=== PATIENT | female | born 1980 | race Caucasian/White ===

== ENCOUNTER 2016-06-27 19:17 | Emergency (ER) | payer SELFPAY ==
[~2016-06-27] VITALS: Ht 167.6 cm; Wt 90.0 kg
[~2016-06-27 19:17] MED LIST: LISI-515 PO; PERC5TAB12 PO; PROT40TA PO; ZOFR4TAB3 SL
[2016-06-27 19:19] VITALS: BP 193/92; PULSE 82; RESP 16; TEMP 98.1; O2SAT 100
[2016-10-18] MEDS ORDERED: NORE1CAP PO (09:14)
[2016-10-18] MEDS ORDERED: NORE1TAB60 PO (09:14)
== END 2016-06-27 20:02 | disposition left against medical advice (07) ==
LOC: NED 19:17
DX: R10.11 Right upper quadrant pain (principal)
CPT/HCPCS: 99281

== ENCOUNTER → 2016-07-03 | Day surgery (SDC) | payer BC ==
[~2016-07-03] MED LIST changes: +ACETAMINOPHEN/HYDROcodone 325 MG/5 MG TAB ONE; +BUPIVACAINE/EPINEPHRINE 0.5% 50 ML VIAL ONE; +IBUP-232 PO; +KETOROLAC TROMETHAMINE 30 MG/ML (IVP) VIAL IV PUSH ONE; +LACTATED RINGER'S 1000 ML INJ 1,000 ML ONE; +MACR100C2 PO; +MIDAZOLAM HCL 2 MG/2 ML VIAL ONE; +MORPHINE SULFATE 4 MG/ML INJ ONE; +NORE1CAP PO; +NORE1TAB60 PO; +ONDANSETRON HCL 4 MG/2 ML VIAL IV PUSH ONE; +PROPOFOL 200 MG/20 ML AMP IV ONE; +ceFAZolin 2 GM PREMIX 50 ML ONE; +metroNIDAZOLE 500 MG INJ 100 ML IV ONE
--- NOTE | 2016-07-03 10:31 | TN ---
cc: REESE CALIXTO M.D. DATE OF SURGERY: 07/03/2016 PREOPERATIVE DIAGNOSIS 1. Growing right gluteal mass. 2. Raised left neck skin lesion. 3. Right upper quadrant pain with cholelithiasis, cholecystitis. POSTOPERATIVE DIAGNOSIS 1. Growing right gluteal mass. 2. Raised left neck skin lesion. 3. Right upper quadrant pain with cholelithiasis, cholecystitis. PROCEDURE 1. Excision of right gluteal mass, 8.5 x 6 cm, double-layer closure, somewhat of a pedunculated mass. 2. Laparoscopic cholecystectomy. 3. Excision of a 5 mm raised, dark, irregular skin lesion. ANESTHESIA General. SURGEON Dr. Calixto [facility] [employer] SHAQUILLE Medrano The NURSING HOME SOCIAL WORKER was present from beginning to the end of the case assisting in all portions of the procedure. It was necessary to have this individual in the room to assist in the above surgical procedure. The surgical procedure was assisted by the NURSING HOME SOCIAL WORKER. The NURSING HOME SOCIAL WORKER presence was necessary throughout the case for appropriate retraction, dissection, visualization, and resection of the important anatomical structures during the surgical procedure. The NURSING HOME SOCIAL WORKER was assisting throughout the entirety of the operation. The skill set of the NURSING HOME SOCIAL WORKER is medically and surgically necessary to safely complete the surgical procedure. During the surgical case the operating room neurosurgical physician assistant was working instrument table and passing instruments to the attending surgeon and NURSING HOME SOCIAL WORKER The NURSING HOME SOCIAL WORKER was directly assisting the operating surgeon and involved in the technical aspects of the surgical case. INDICATIONS This is a pleasant lady who had severe right upper quadrant pain and was found to have cholelithiasis, cholecystitis. She also had a right gluteal mass that was quite bothersome, somewhat pedunculated measuring 8.5 x 6 cm, and a left neck skin lesion that was growing and concerning to her. DETAILS OF PROCEDURE The patient was taken to the operating room and placed in the supine position. After anesthesia, she placed in the prone position. The right gluteal mass is prepped with Betadine. We make an elliptical incision measuring 10 x 7 cm to completely enucleate and remove this pedunculated mass with its stalk and underlying tissue to normal adipose tissue. It was passed off the field. We then closed in two layers, reapproximating the defect with 3-0 Vicryl in the deep layer and interrupted 3-0 nylon in the skin. We then place her in the prone position, re-prep and drape. Another timeout was done. We anesthetize just under the umbilicus. A Veress needle is inserted. A saline load test is performed. The abdomen is insufflated to 15 mmHg. A camera is introduced after a 10 mm port is placed. Two other working ports are placed, 5 mm below the xyphoid, 5 mm in between the two previously placed ports. The gallbladder can be seen and has chronic inflammation and adhesions which are taken down with blunt dissection and electrocautery device. The gallbladder is then grasped superior and laterally. We identified the cystic duct. There is a very small, non-existent cystic artery which is cauterized. The gallbladder is then teased off the gallbladder bed after doubly ligating the cystic duct with hemoclips and transecting. The gallbladder is then placed in an EndoCatch and pulled out through the umbilical incision and passed off the field. We check our dissection site. There is excellent hemostasis. No other gross abnormality is seen. The trocars are removed. The CO2 is removed. The fascial defect in the umbilicus is closed in a horizontal fashion using 0 Vicryl in interrupted fashion to reapproximate the defect. The skin is then closed with 4-0 Vicryl at all three sites. We then direct our attention to the left neck and the area is prepped with Betadine. We simply do a shave biopsy to remove the lesion completely and cauterize the base for hemostasis and place a Band-Aid. The patient tolerated the procedure well. She was then extubated and returned to Recovery with no immediate post-op complication. MD CECILIO Aguiar/RAOUL /10:04 AM /10:18 AM SARA
== END | disposition home or self-care (01) ==
LOC: ESDC 06:42
PROVIDERS: ATTEND Surgery
DX: K80.10 Calculus of gallbladder with chronic cholecystitis without obstruction (principal); R22.2 Localized swelling, mass and lump, trunk; L98.9 Disorder of the skin and subcutaneous tissue, unspecified
CPT/HCPCS: 00300; 00400; 00790; 11308; 27043; 47562; 88304; 88305; J0690; J1885; J2250; J2270; J2405; J3010; J7120

== ENCOUNTER 2016-07-04 07:28 | Emergency (ER) | payer BC ==
[~2016-07-04] VITALS: Ht 167.6 cm; Wt 90.0 kg
[~2016-07-04 07:28] MED LIST changes: -ACETAMINOPHEN/HYDROcodone 325 MG/5 MG TAB ONE; -BUPIVACAINE/EPINEPHRINE 0.5% 50 ML VIAL ONE; -IBUP-232 PO; -KETOROLAC TROMETHAMINE 30 MG/ML (IVP) VIAL IV PUSH ONE; -LACTATED RINGER'S 1000 ML INJ 1,000 ML ONE; -MACR100C2 PO; -MIDAZOLAM HCL 2 MG/2 ML VIAL ONE; -MORPHINE SULFATE 4 MG/ML INJ ONE; -NORE1CAP PO; -NORE1TAB60 PO; -ONDANSETRON HCL 4 MG/2 ML VIAL IV PUSH ONE; -PROPOFOL 200 MG/20 ML AMP IV ONE; -ceFAZolin 2 GM PREMIX 50 ML ONE; -metroNIDAZOLE 500 MG INJ 100 ML IV ONE
[2016-07-04 07:36] VITALS: BP 149/101; PULSE 109; RESP 20; TEMP 98; O2SAT 98
[2016-07-04] MEDS ORDERED: SODIUM CHLOR 0.9% 1000 ML INJ 1,000 ML IV ONE (08:00)
[2016-07-04] MEDS ORDERED: SODIUM CHLORIDE 0.9% FLUSH 5 ML FLUSH IVF PRN (08:00)
[2016-07-04] MEDS ORDERED: MORPHINE SULFATE 4 MG/ML INJ IV PUSH ONE (08:00)
--- NOTE | 2016-07-04 08:03 | PD ---
HPI Chief Complaint: Pain: Acute or Chronic Time Seen by Provider: 07:48 Travel History International Travel<30 days: No Contact w/Intl Traveler<30days: No Traveled to known affect area: No History of Present Illness HPI Patient is a 36-year-old female who presents to emergency room with complaints of right upper quadrant abdominal pain radiating to her chest. Patient reports that she had a laparoscopic cholecystectomy yesterday by Dr. Miguel Angel Calixto. Patient reports that she was discharged after her cholecystectomy, reports that after her surgery, she had increased pain to her upper quadrant which radiates her chest. Patient reports that since yesterday, she had been having sharp stabbing pains with increased shortness of breath with her symptoms. Patient reports "I just can't take a deep breath." Patient reports that she was prescribed pain medication after surgery, reports that this has not been helping with her symptoms. Patient with no fevers or chills. Patient reports that she is having chest pain, reports that chest feels a sharp, stabbing pain to her chest. Reports that pain goes from her right upper quadrant and radiates to her chest - reports that she has never had these symptoms in the past. Patient with history of hypertension, denies history of coronary disease or CT in the past. PFSH Past Medical History Diminished Hearing: No Gastrointestinal Disorders: Yes (gallstones) Genitourinary: Yes (UTERINE FIBROIDS) Hypertension: Yes Reproductive: Yes (HX OF FIBROIDS) Immunizations Current: No ?: Not Menopausal: No : 1 Para: 1 Miscarriage: 0 : 0 Social History Alcohol Use: No Tobacco Use: No Substance Use: No Allergies-Medications (Allergen,Severity, Reaction): Coded Allergies: No Known Allergies (Unverified , 06/27/16) Reported Meds & Prescriptions Reported Meds & Active Scripts Active Ibuprofen 600 Mg Tab 600 Mg PO Q6H PRN Zofran Odt (Ondansetron Odt) 4 Mg Tab 4 Mg SL Q6HR PRN 7 Days Protonix (Pantoprazole Sodium) 40 Mg Tab 40 Mg PO DAILY Percocet (Oxycodone-Acetaminophen) 5-325 mg Tab 1 Tab PO Q4H PRN Reported Lisinopril 20 Mg Tab 20 Mg PO DAILY Review of Systems General / Constitutional: No: Fever Eyes: No: Visual changes HENT: No: Headaches Cardiovascular: Positive: Chest Pain or Discomfort, Palpitations Respiratory: Positive: Shortness of Breath Gastrointestinal: No: Abdominal Pain Genitourinary: No: Dysuria Musculoskeletal: No: Pain Skin: No Rash Neurologic: No: Weakness Psychiatric: No: Depression Endocrine: No: Polydipsia Hematologic/Lymphatic: No: Easy Bruising Physical Exam Narrative GENERAL: NAD SKIN: Warm and dry. HEAD: Atraumatic. Normocephalic. EYES: Pupils equal and round. No scleral icterus. No injection or drainage. ENT: No nasal bleeding or discharge. Mucous membranes pink and moist. NECK: Trachea midline. No JVD. CARDIOVASCULAR: Regular rate and rhythm. No murmur appreciated. RESPIRATORY: No accessory muscle use. Clear to auscultation. Breath sounds equal bilaterally. GASTROINTESTINAL: Abdomen soft, patient with right upper quadrant tenderness - guarding on exam, incisions sites are clean, dry, intact with no signs of infection or drainage or erythema MUSCULOSKELETAL: No obvious deformities. No clubbing. No cyanosis. No edema. NEUROLOGICAL: Awake and alert. No obvious cranial nerve deficits. Motor grossly within normal limits. Normal speech. PSYCHIATRIC: Patient anxious on exam Data Data Last Documented VS Vital Signs Date Time Temp Pulse Resp B/P Pulse Ox O2 Delivery O2 Flow Rate FiO2 07/04/16 08:41 18 100 Nasal Cannula 2 07/04/16 08:41 88 07/04/16 08:41 98.3 141/76 Orders Electrocardiogram (07/04/16 07:55) Complete Blood Count With Diff (07/04/16 07:55) Comprehensive Metabolic Panel (07/04/16 07:55) Prothrombin Time / Inr (Pt) (07/04/16 07:55) Act Partial Throm Time (Ptt) (07/04/16 07:55) Lipase (07/04/16 07:55) Chest, Single Ap (07/04/16 07:55) Ecg Monitoring (07/04/16 07:55) Iv Access Insert/Monitor (07/04/16 07:55) Oximetry (07/04/16 07:55) Sodium Chloride 0.9% Flush (Ns Flush) (07/04/16 08:00) Ct Pulmonary Angiogram (07/04/16 07:55) Urinalysis - C+S If Indicated (07/04/16 07:55) Ed Urine Pregnancytest Poc (07/04/16 07:55) Morphine Inj (Morphine Inj) (07/04/16 08:00) Sodium Chlor 0.9% 1000 Ml Inj (Ns 1000 M (07/04/16 08:00) Iohexol 350 Inj (Omnipaque 350 Inj) (07/04/16 09:32) Urine Culture (07/04/16 09:50) Nitrofurantoin Monohyd Macrocr (Macrobid (07/04/16 10:30) Ketorolac Inj (Toradol Inj) (07/04/16 10:30) Labs Laboratory Tests Test 07/04/16 07/04/16 08:33 09:50 White Blood Count 8.5 TH/MM3 Red Blood Count 4.56 MIL/MM3 Hemoglobin 12.0 GM/DL Hematocrit 36.1 % Mean Corpuscular Volume 79.2 FL Mean Corpuscular Hemoglobin 26.3 PG Mean Corpuscular Hemoglobin 33.2 % Concent Red Cell Distribution Width 14.3 % Platelet Count 158 TH/MM3 Mean Platelet Volume 11.2 FL Neutrophils (%) (Auto) 80.0 % Lymphocytes (%) (Auto) 11.9 % Monocytes (%) (Auto) 7.4 % Eosinophils (%) (Auto) 0.4 % Basophils (%) (Auto) 0.3 % Neutrophils # (Auto) 6.8 TH/MM3 Lymphocytes # (Auto) 1.0 TH/MM3 Monocytes # (Auto) 0.6 TH/MM3 Eosinophils # (Auto) 0.0 TH/MM3 Basophils # (Auto) 0.0 TH/MM3 CBC Comment DIFF FINAL Differential Comment Prothrombin Time 10.3 SEC Prothromb Time International 0.9 RATIO Ratio Activated Partial 25.1 SEC Thromboplast Time Sodium Level 138 MEQ/L Potassium Level 4.2 MEQ/L Chloride Level 105 MEQ/L Carbon Dioxide Level 23.9 MEQ/L Anion Gap 9 MEQ/L Blood Urea Nitrogen 10 MG/DL Creatinine 0.79 MG/DL Estimat Glomerular Filtration 83 ML/MIN Rate Random Glucose 88 MG/DL Calcium Level 9.0 MG/DL Total Bilirubin 0.6 MG/DL Aspartate Amino Transf 54 U/L (AST/SGOT) Alanine Aminotransferase 29 U/L (ALT/SGPT) Alkaline Phosphatase 72 U/L Total Protein 7.6 GM/DL Albumin 3.7 GM/DL Lipase 137 U/L Urine Color YELLOW Urine Turbidity HAZY Urine pH 6.0 Urine Specific [place] 1.021 Urine Protein NEG mg/dL Urine Glucose (UA) NEG mg/dL Urine Ketones NEG mg/dL Urine Occult Blood NEG Urine Nitrite NEG Urine Bilirubin NEG Urine Urobilinogen LESS THAN 2.0 MG/DL Urine Leukocyte Esterase LARGE Urine WBC 19 /hpf Urine Squamous Epithelial 7 /hpf Cells Urine Mucus FEW /lpf Urine Yeast (Budding) OCC Microscopic Urinalysis Comment CULTURE INDICATED MDM Medical Decision Making Medical Screen Exam Complete: Yes Emergency Medical Condition: Yes Interpretation(s) EKG at 0807: Normal sinus rhythm at 81 beats a minute, QT/QTC: 355/392, no acute ST or T-wave changes Vital Signs Date Time Temp Pulse Resp B/P Pulse Ox O2 Delivery O2 Flow Rate FiO2 07/04/16 07:36 98.0 109 20 149/101 98 Differential Diagnosis post op pain, anxiety, PE, pneumothorax, arrhythmia, electrolyte abnormality, pneumoperitoneum Narrative Course Patient is a 36-year-old female who presents to emergency room with complaints of right upper quadrant pain radiating to her chest - patient reports that symptoms began yesterday after she had a laparoscopic cholecystectomy by Dr. Calixto. Patient currently with pain from right upper quadrant radiating up to her chest. Patient currently complaining of chest pain and shortness of breath. Patient reports her chest pain is sharp and stabbing in nature and stems from her right upper quadrant. On evaluation, patient is very anxious, patient does have right upper quadrant pain and guarding. Patient with most likely postop pain, cannot exclude PE with her shortness of breath and pleuritic chest pain. Patient was placed on court monitor as well as continuous pulse oximeter upon arrival to emergency room. EKG, x-ray chest, CBC, BMP and CT angiogram the chest ordered for further evaluation of symptoms. In the interim, will hydrate patient, and provide patient pain relief with morphine. Patient reevaluated, patient reports that she is feeling much better, reviewed all labs and all studies as well as all his and all findings with patient in detail. CT abdomen and pelvis shows evidence of free intraperitoneal air within the right upper abdomen, this is most likely from abdominal surgery secondary to her procedure yesterday. Patient with no evidence of pulmonary embolism. EKG with no acute ST-T wave changes. I do not believe that patient has cardiac chest pain and patient with most likely postop pain. Patient will follow up with her surgeon as outpatient and return to ER as needed. Signs and symptoms of when to return to the emergency room reviewed with patient. Patient thankful for care. Diagnosis Primary Impression: Post-operative pain Additional Impression: UTI (urinary tract infection) Qualified Code: N30.00 - Acute cystitis without hematuria Patient Instructions: Narcotic given in the ED, General Instructions Departure Forms: Tests/Procedures, Work Release Enter return to work date: Jul 06, 2016 Additional Instructions: Please return to ER as needed Please follow-up with your surgeon as scheduled Please follow-up with your primary care doctor in 1-2 days Med/Other Pt SpecificInfo: Prescription(s) given Scripts Nitrofurantoin Monohydrate Macrocrystals (Macrobid)100 Mg [id number] Mg PO BID 10 Days Ref 0 Prov:Hailey Turner DO 07/04/16 Ibuprofen 600 Mg [id number] Mg PO Q6H PRN (Pain/Inflammation) #40 TAB Ref 0 Prov:Hailey Turner DO 07/04/16 Disposition: 01 DISCHARGE HOME Condition: Fair Hailey Turner DO Jul 04, 2016 08:03
[2016-07-04 08:41] VITALS: BP 141/76; PULSE 85; RESP 18; TEMP 98.3; O2SAT 100; O2SAT 98
[2016-07-04 08:45] LABS: AUTOMATED NEUTROPHIL # 6.8 TH/MM3 (1.8-7.7); BASOPHIL % 0.3 % (0.0-2.0); EOSINOPHIL % 0.4 % (0.0-4.0); HEMATOCRIT 36.1 % (35.0-46.0); HEMO FLAGS DIFF FINAL; LYMPH % 11.9 % (9.0-44.0); MEAN CELL VOLUME 79.2 FL (80.0-100.0); MEAN CORPUSCULAR HEMOGLOBIN 26.3 PG (27.0-34.0); MEAN CORPUSCULAR HGB CONC 33.2 % (32.0-36.0); MONO % 7.4 % (0.0-8.0); PLATELET COUNT 158 TH/MM3 (150-450); RED BLOOD COUNT 4.56 MIL/MM3 (4.00-5.30); RED CELL DISTRIBUTION WIDTH 14.3 % (11.6-17.2); WHITE BLOOD COUNT 8.5 TH/MM3 (4.0-11.0)
--- NOTE | 2016-07-04 08:49 | RADRPT ---
EXAM DATE/TIME: 07/04/2016 08:08 [facility] COMPARISON: CT PULMONARY ANGIOGRAM, April 25, 2013, 0:29. US ABDOMEN - GALLBLADDER, June 22, 2016, 20:12. INDICATIONS : Severe abdomen pains radiating into chest. MEDICAL HISTORY : Cholelithiasis. SURGICAL HISTORY : Cholecystectomy. ENCOUNTER: Initial ACUITY: 1 day PAIN SCORE: 10/10 LOCATION: Bilateral chest FINDINGS: A single view of the chest demonstrates the lungs to be symmetrically aerated without evidence of mas s, infiltrate or effusion. The cardiomediastinal contours are unremarkable. Osseous structures are intact. CONCLUSION: Normal examination. Viola Herron MD on July 04, 2016 at 8:47 Board Certified Radiologist. This report was verified electronically.
[2016-07-04 08:55] LABS: APTT (PATIENT) 25.1 SEC (24.3-30.1); INTERNATIONAL NORMALIZED RATIO 0.9 RATIO; PROTHROMBIN TIME - PATIENT 10.3 SEC (9.8-11.6)
[2016-07-04 09:07] LABS: ALKALINE PHOSPHATASE 72 U/L (45-117); ALT (GPT) 29 U/L (10-53); ANION GAP 9 MEQ/L (5-15); AST (GOT) 54 U/L (15-37); BICARBONATE 23.9 MEQ/L (21.0-32.0); BLOOD UREA NITROGEN 10 MG/DL (7-18); CHLORIDE 105 MEQ/L (98-107); GLOMERULAR FILTRATION RATE 83 ML/MIN (>89); SODIUM (NA) 138 MEQ/L (136-145); TOTAL BILIRUBIN ADULT 0.6 MG/DL (0.2-1.0)
[2016-07-04 09:09] LABS: POTASSIUM 4.2 MEQ/L (3.5-5.1)
[2016-07-04] MEDS ORDERED: IOHEXOL 350 MG/ML 10 ML VIAL (for RAD DIAG) IV ONE (09:32)
--- NOTE | 2016-07-04 09:46 | RADRPT ---
EXAM DATE/TIME: 07/04/2016 09:23 [facility] COMPARISON: CHEST SINGLE AP, July 04, 2016, 8:08. CT PULMONARY ANGIOGRAM, April 25, 2013, 0:29. INDICATIONS : Shortness of breath, right upper quadrant pain radiating to chest; recent cholecystectomy. IV CONTRAST: 70 cc Omnipaque 350 (iohexol) IV RADIATION DOSE: 18.62 CTDIvol (mGy) MEDICAL HISTORY : Hypertension. SURGICAL HISTORY : Cholecystectomy. ENCOUNTER: Initial ACUITY: 1 day PAIN SCALE: 10/10 LOCATION: Right chest TECHNIQUE: Volumetric scanning of the chest was performed using a pulmonary embolism protocol MIP images were re constructed. Using automated exposure control and adjustment of the mA and/or kV according to patien t size, radiation dose was kept as low as reasonably achievable to obtain optimal diagnostic quality images. FINDINGS: PULMONARY ARTERIES: No filling defects are seen in the pulmonary arteries through the segmental level. LUNGS: There is no consolidation or pneumothorax . No concerning pulmonary nodule is visualized. PLEURAE: There is no pleural thickening or pleural effusion. MEDIASTINUM: There is good visualization of the great vessels of the middle mediastinum. No evidence of mediastin al or hilar adenopathy/mass. MUSCULOSKELETAL: Within normal limits for patient age. MISCELLANEOUS: There is evidence of free intraperitoneal air within the upper abdomen. If this patient has had recen t intra-abdominal surgery this is likely secondary to this procedure. If no recent intra-abdominal perez rgery has been performed, perforated viscus should be considered. CONCLUSION: 1. Evidence of free intraperitoneal air within the upper abdomen. If this patient has had recent intr a-abdominal surgery this is likely secondary to this procedure. If no recent intra-abdominal surgery has been performed, perforated viscus should be considered. 2. No evidence of pulmonary embolism. Isac Martins MD on July 04, 2016 at 9:39 Board Certified Radiologist. This report was verified electronically.
[2016-07-04 10:05] LABS: BLOOD, URINE NEG (NEG); COMMENT (UR) CULTURE INDICATED; CULTURE IF INDICATED CULTURE INDICATED; GLUCOSE,URINE NEG (NEG); KETONE, URINE NEG (NEG); MUCUS URINE FEW /lpf (OCC); NITRITE,URINE NEG (NEG); SQUAMOUS EPITHELIAL CELL URINE 7 /hpf (0-5); URINE COLOR YELLOW (YELLW/STRAW)
[2016-07-04] MEDS ORDERED: IBUP-232 PO (10:27)
[2016-07-04] MEDS ORDERED: MACR100C2 PO (10:28)
[2016-07-04] MEDS ORDERED: NITROFURANTOIN MONOHYD MACROCR 100 MG CAP PO ONE (10:30)
[2016-07-04] MEDS ORDERED: KETOROLAC TROMETHAMINE 30 MG/ML (IVP) VIAL IV PUSH ONE (10:30)
--- NOTE | 2016-07-04 22:27 | EKG ---
Date Performed: 07/04/2016 Time Performed: 08:07:44 PTAGE: 36 years EKG: Sinus rhythm NORMAL ECG Compared to prior tracing no significant change DOCTOR: Lupillo Yusuf Interpretating Date/Time 07/04/2016 22:25:01
[2016-10-18] MEDS ORDERED: NORE1TAB60 PO (09:14)
[2016-10-18] MEDS ORDERED: NORE1CAP PO (09:14)
== END 2016-07-04 10:43 | disposition home or self-care (01) ==
LOC: NEPC 07:28
DX: G89.18 Other acute postprocedural pain (principal); N30.00 Acute cystitis without hematuria; R10.11 Right upper quadrant pain; R06.02 Shortness of breath; R07.9 Chest pain, unspecified; I10 Essential (primary) hypertension; Z87.19 Personal history of other diseases of the digestive system; Z87.42 Personal history of other diseases of the female genital tract; Z98.890 Other specified postprocedural states
CPT/HCPCS: 71010; 71275; 80053; 81001; 83690; 84703; 85025; 85610; 85730; 87086; 93005; 96374; 96375; 99284; J1885; J2270; J7030; Q9967

== ENCOUNTER 2016-07-26 08:25 | Emergency (ER) | payer BC ==
[~2016-07-26] VITALS: Ht 167.6 cm; Wt 90.0 kg
[~2016-07-26 08:25] MED LIST changes: +IBUP-232 PO; +MACR100C2 PO
[2016-07-26 08:27] VITALS: BP 156/88; PULSE 78; RESP 20; TEMP 97.6; O2SAT 100
[2016-10-18] MEDS ORDERED: NORE1CAP PO (09:14)
[2016-10-18] MEDS ORDERED: NORE1TAB60 PO (09:14)
== END 2016-07-26 09:00 | disposition left against medical advice (07) ==
LOC: NED 08:25
DX: R10.9 Unspecified abdominal pain (principal); Z53.21 Procedure and treatment not carried out due to patient leaving prior to being seen by health care provider
CPT/HCPCS: 99281

== ENCOUNTER 2016-07-29 10:28 | Emergency (ER) | payer BC ==
[~2016-07-29] VITALS: Ht 167.6 cm; Wt 90.0 kg
[2016-07-29 10:29] VITALS: BP 154/87; PULSE 73; RESP 14; TEMP 98.1; O2SAT 97
[2016-07-29 10:47] VITALS: BP 140/82; PULSE 74; RESP 18; TEMP 98; O2SAT 99
[2016-07-29 11:32] LABS: AUTOMATED NEUTROPHIL # 3.1 TH/MM3 (1.8-7.7); BASOPHIL % 0.7 % (0.0-2.0); EOSINOPHIL # 0.1 TH/MM3 (0-0.4); EOSINOPHIL % 2.1 % (0.0-4.0); HEMATOCRIT 35.9 % (35.0-46.0); HEMO FLAGS DIFF FINAL; LYMPH % 23.8 % (9.0-44.0); LYMPHOCYTE # 1.1 TH/MM3 (1.0-4.8); MEAN CELL VOLUME 79.5 FL (80.0-100.0); MEAN CORPUSCULAR HEMOGLOBIN 26.4 PG (27.0-34.0); MEAN CORPUSCULAR HGB CONC 33.2 % (32.0-36.0); NEUT % 67.4 % (16.0-70.0); PLATELET COUNT 161 TH/MM3 (150-450); RED BLOOD COUNT 4.52 MIL/MM3 (4.00-5.30); RED CELL DISTRIBUTION WIDTH 14.5 % (11.6-17.2); WHITE BLOOD COUNT 4.6 TH/MM3 (4.0-11.0)
[2016-07-29 11:55] LABS: BETA HCG QUANT LESS THAN 1 MIU/ML (0-5)
--- NOTE | 2016-07-29 12:41 | PD ---
HPI Chief Complaint: Bleeding Time Seen by Provider: 10:52 Travel History International Travel<30 days: No Contact w/Intl Traveler<30days: No Traveled to known affect area: No History of Present Illness HPI 36-year-old woman with a history of fibroids, presents emergency Department with abnormal vaginal bleeding for the past month or so. She reports abdominal pain cramping and dizziness. She had a cholecystectomy done several weeks ago, following a she started with this abnormal vaginal bleeding. She denies being sexually active. History Past Medical History Narrative Medical Fibroids Anemia Menopausal: No : 1 Para: 1 Social History Alcohol Use: No Tobacco Use: No Allergies-Medications (Allergen,Severity, Reaction): Coded Allergies: No Known Allergies (Unverified , 06/27/16) Reported Meds & Prescriptions Reported Meds & Active Scripts Active Macrobid (Nitrofurantoin Monoh/Nitrofur Macro) 100 Mg Cap 100 Mg PO BID 10 Days Ibuprofen 600 Mg Tab 600 Mg PO Q6H PRN Zofran Odt (Ondansetron Odt) 4 Mg Tab 4 Mg SL Q6HR PRN 7 Days Protonix (Pantoprazole Sodium) 40 Mg Tab 40 Mg PO DAILY Percocet (Oxycodone-Acetaminophen) 5-325 mg Tab 1 Tab PO Q4H PRN Reported Lisinopril 20 Mg Tab 20 Mg PO DAILY Review of Systems Except as stated in HPI: all other systems reviewed are Neg Physical Exam Narrative Patient refuses physical exam Data Data Last Documented VS Vital Signs Date Time Temp Pulse Resp B/P Pulse Ox O2 Delivery O2 Flow Rate FiO2 07/29/16 10:50 18 18 99 Room Air 07/29/16 10:47 98.0 140/82 Orders Complete Blood Count With Diff (07/29/16 10:54) Beta Hcg (Quant/Titer) (07/29/16 10:54) Iv Access Insert/Monitor (07/29/16 10:54) Labs Laboratory Tests Test 07/29/16 11:15 White Blood Count 4.6 TH/MM3 Red Blood Count 4.52 MIL/MM3 Hemoglobin 11.9 GM/DL Hematocrit 35.9 % Mean Corpuscular Volume 79.5 FL Mean Corpuscular Hemoglobin 26.4 PG Mean Corpuscular Hemoglobin 33.2 % Concent Red Cell Distribution Width 14.5 % Platelet Count 161 TH/MM3 Mean Platelet Volume 10.5 FL Neutrophils (%) (Auto) 67.4 % Lymphocytes (%) (Auto) 23.8 % Monocytes (%) (Auto) 6.0 % Eosinophils (%) (Auto) 2.1 % Basophils (%) (Auto) 0.7 % Neutrophils # (Auto) 3.1 TH/MM3 Lymphocytes # (Auto) 1.1 TH/MM3 Monocytes # (Auto) 0.3 TH/MM3 Eosinophils # (Auto) 0.1 TH/MM3 Basophils # (Auto) 0.0 TH/MM3 CBC Comment DIFF FINAL Differential Comment Human Chorionic Gonadotropin, LESS THAN 1 Quant MIU/ML MDM Medical Decision Making Medical Screen Exam Complete: Yes Emergency Medical Condition: Yes Interpretation(s) LABS: CBC remarkable for macrocytic indices, no anemia. HCG negative Differential Diagnosis Dysmenorrhea, fibroids, dysfunctional uterine bleeding, ectopic, other Narrative Course Medical decision making Patient was initially evaluated by the medical student. I went back and her to see the patient discuss her plan of care with her which included laboratory studies, pelvic exam, and outpatient follow-up with gynecology. The patient without point admitted that she had been seen in the emergency department within the past several days and had all the same things done. She reports she came in really she was opening an ultrasound or some other type of study to look at her fibroids. She states she called and gynecology at cannot take them a month or so to get her in. I find her laboratory findings and her pre- existing diagnosis of fibroids I did not feel that she needed an emergency ultrasound at this time. She may need an ultrasound as further evaluation of her outpatient workup but I believe this should be done by the electronic calibration technician assumes her care. We discussed treatment with hormones to reduce amount of bleeding and the risks of Catr[place], will some mucus with that. This point patient states that she doesn't feel well and wants to just leave. She refused any physical exam including simply abdominal exam. Diagnosis Primary Impression: Fibroids Qualified Code: D25.9 - Uterine leiomyoma, unspecified location Referrals: Birdie Gould MD (PCP) Patient Instructions: General Instructions Departure Forms: Tests/Procedures Additional Instructions: Follow-up with your electronic calibration technician at the first available appointment. Return to the emergency department for any worsening lightheadedness, dizziness , or any other new or worsening symptoms. Med/Other Pt SpecificInfo: No Change to Meds Disposition: 01 DISCHARGE HOME Condition: Doroteo Hunter MD Jul 29, 2016 12:41
[2016-07-29 13:12] VITALS: BP 142/67
[2016-10-18] MEDS ORDERED: NORE1CAP PO (09:14)
[2016-10-18] MEDS ORDERED: NORE1TAB60 PO (09:14)
== END 2016-07-29 13:14 | disposition home or self-care (01) ==
LOC: NEPC 10:28
DX: D25.9 Leiomyoma of uterus, unspecified (principal); R10.9 Unspecified abdominal pain; R42 Dizziness and giddiness; Z98.890 Other specified postprocedural states; Z87.42 Personal history of other diseases of the female genital tract; Z86.2 Personal history of diseases of the blood and blood-forming organs and certain disorders involving the immune mechanism
CPT/HCPCS: 84702; 85025; 99284

== ENCOUNTER 2017-01-28 11:00 | Emergency (ER) | payer BC ==
[~2017-01-28] VITALS: Ht 167.6 cm; Wt 90.0 kg
[~2017-01-28 11:00] MED LIST changes: -IBUP-232 PO; -MACR100C2 PO; +NORE1CAP PO; +NORE1TAB60 PO; -PERC5TAB12 PO
[2017-01-28 11:02] VITALS: BP 142/83; PULSE 76; RESP 20; TEMP 98; O2SAT 100
--- NOTE | 2017-01-28 11:15 | PD ---
Physical Exam Date Seen by Provider: Jan 28, 2017 Time Seen by Provider: 11:11 Narrative 36 Y/O female presents with right abd and Flank pain for the past few days. Hx. Gallbladder removal in June. Patient has had off and on pain since Gallbladder removal. Pain worse this am. Patient through up today at work. Pain radiates into back. Pain 9/10. No chance . Denies Urinary symptoms. NKDA. Vital signs reviewed. Patient stable. Awaiting Bed placement. Data Data Last Documented VS Vital Signs Date Time Temp Pulse Resp B/P Pulse Ox O2 Delivery O2 Flow Rate FiO2 01/28/17 11:02 98.0 76 20 142/83 100 Room Air [facility] Medical Record Reviewed: Yes Supervised Visit with CONSTANCE: Yes Condition: Stable Donavan Fitzgerald Jan 28, 2017 11:15
[2017-01-28] MEDS ORDERED: HYDR-3366 PO (11:40)
--- NOTE | 2017-01-28 11:54 | PD ---
HPI Chief Complaint: Flank/Kidney Pain Time Seen by Provider: 11:53 Travel History International Travel<30 days: No Contact w/Intl Traveler<30days: No Traveled to known affect area: No History of Present Illness HPI 36 YO F with PMH of recent diagnosis of portal hypertension presents to the ED for evaluation of intermittent, sharp, 8/10 left upper quadrant abdominal pain. Waxing and waning. No alleviating factors reported. Exacerbated by bending over. Accompanied by nausea with one episode of vomiting this morning. Patient endorses normal appetite, nonbloody bowel movement today. She denies fever, chills, dysuria, risk of . She had an upper and lower endoscopy 2 weeks ago, and laparoscopic cholecystectomy in June of this year. PFSH Past Medical History Diminished Hearing: No Gastrointestinal Disorders: Yes (gallstones) GERD: Yes Genitourinary: Yes (UTERINE FIBROIDS) Hypertension: Yes Reproductive: Yes (HX OF FIBROIDS) Immunizations Current: No Tetanus Vaccination: Unknown ?: Not Menopausal: No : 1 Para: 1 Miscarriage: 0 : 0 Past Surgical History Abdominal Surgery: Yes (gallbladder removal ) Cholecystectomy: Yes (07-03-16 ) Social History Alcohol Use: No Tobacco Use: No Substance Use: No Allergies-Medications (Allergen,Severity, Reaction): Coded Allergies: No Known Allergies (Unverified , 01/28/17) Reported Meds & Prescriptions Reported Meds & Active Scripts Active Zofran Odt (Ondansetron Odt) 4 Mg Tab 4 Mg SL Q6HR PRN 7 Days Protonix (Pantoprazole Sodium) 40 Mg Tab 40 Mg PO DAILY Reported [place] (Hydrocodone-Acetaminophen) 10-325 Mg Tab 1 Tab PO Q6H PRN Lisinopril 20 Mg Tab 20 Mg PO DAILY Review of Systems Except as stated in HPI: all other systems reviewed are Neg Physical Exam Narrative GENERAL: Well-nourished, well-developed nontoxic appearing white female in no acute distress. SKIN: Focused skin assessment warm/dry. HEAD: Normocephalic. EYES: No scleral icterus. No injection or drainage. NECK: Supple, trachea midline. No JVD or lymphadenopathy. CARDIOVASCULAR: Regular rate and rhythm without murmurs, gallops, or rubs. RESPIRATORY: Breath sounds clear and equal bilaterally. No accessory muscle use. GASTROINTESTINAL: Abdomen soft, nondistended. Tender to palpation in the right upper quadrant. Active bowel sounds. MUSCULOSKELETAL: No cyanosis, or edema. BACK: Nontender without obvious deformity. No CVA tenderness. Data Data Last Documented VS Vital Signs Date Time Temp Pulse Resp B/P Pulse Ox O2 Delivery O2 Flow Rate FiO2 01/28/17 16:38 72 20 147/64 100 Room Air 01/28/17 11:02 98.0 Orders Urinalysis - C+S If Indicated (01/28/17 11:14) Complete Blood Count With Diff (01/28/17 12:02) Comprehensive Metabolic Panel (01/28/17 12:02) Lipase (01/28/17 12:02) Lactic Acid (01/28/17 12:02) Prothrombin Time / Inr (Pt) (01/28/17 12:02) Act Partial Throm Time (Ptt) (01/28/17 12:02) Iv Access Insert/Monitor (01/28/17 12:02) Ecg Monitoring (01/28/17 12:02) Oximetry (01/28/17 12:02) Morphine Inj (Morphine Inj) (01/28/17 12:15) Ondansetron Inj (Zofran Inj) (01/28/17 12:15) Sodium Chlor 0.9% 1000 Ml Inj (Ns 1000 M (01/28/17 12:02) Sodium Chloride 0.9% Flush (Ns Flush) (01/28/17 12:15) Ed Urine Pregnancytest Poc (01/28/17 12:02) Ct Abd/Pel W Iv Contrast(Rout) (01/28/17 15:00) Iohexol 350 Inj (Omnipaque 350 Inj) (01/28/17 16:25) Labs Laboratory Tests Test 01/28/17 01/28/17 12:24 14:34 White Blood Count 6.9 TH/MM3 Red Blood Count 4.94 MIL/MM3 Hemoglobin 12.5 GM/DL Hematocrit 37.6 % Mean Corpuscular Volume 76.1 FL Mean Corpuscular Hemoglobin 25.3 PG Mean Corpuscular Hemoglobin 33.2 % Concent Red Cell Distribution Width 15.4 % Platelet Count 174 TH/MM3 Mean Platelet Volume 10.9 FL Neutrophils (%) (Auto) 81.7 % Lymphocytes (%) (Auto) 12.2 % Monocytes (%) (Auto) 4.8 % Eosinophils (%) (Auto) 0.8 % Basophils (%) (Auto) 0.5 % Neutrophils # (Auto) 5.7 TH/MM3 Lymphocytes # (Auto) 0.8 TH/MM3 Monocytes # (Auto) 0.3 TH/MM3 Eosinophils # (Auto) 0.1 TH/MM3 Basophils # (Auto) 0.0 TH/MM3 CBC Comment DIFF FINAL Differential Comment Prothrombin Time 9.8 SEC Prothromb Time International 0.9 RATIO Ratio Activated Partial 26.3 SEC Thromboplast Time Sodium Level 139 MEQ/L Potassium Level 4.0 MEQ/L Chloride Level 104 MEQ/L Carbon Dioxide Level 25.3 MEQ/L Anion Gap 10 MEQ/L Blood Urea Nitrogen 15 MG/DL Creatinine 0.73 MG/DL Estimat Glomerular Filtration 91 ML/MIN Rate Random Glucose 90 MG/DL Lactic Acid Level 0.9 mmol/L Calcium Level 9.4 MG/DL Total Bilirubin 0.2 MG/DL Aspartate Amino Transf 15 U/L (AST/SGOT) Alanine Aminotransferase 17 U/L (ALT/SGPT) Alkaline Phosphatase 89 U/L Total Protein 8.7 GM/DL Albumin 4.2 GM/DL Lipase 239 U/L Urine Color LIGHT-YELLOW Urine Turbidity CLEAR Urine pH 7.5 Urine Specific [place] 1.012 Urine Protein NEG mg/dL Urine Glucose (UA) NEG mg/dL Urine Ketones NEG mg/dL Urine Occult Blood NEG Urine Nitrite NEG Urine Bilirubin NEG Urine Urobilinogen LESS THAN 2.0 MG/DL Urine Leukocyte Esterase NEG Urine Squamous Epithelial <1 /hpf Cells Microscopic Urinalysis Comment CULT NOT INDICATED MDM Medical Decision Making Medical Screen Exam Complete: Yes Emergency Medical Condition: Yes Differential Diagnosis abdominal adhesions versus biliary obstruction versus UTI versus Anthony Federico David syndrome versus pancreatitis versus other Narrative Course 36 YO F with PMH of recent diagnosis of portal hypertension presents to the ED for evaluation of intermittent, sharp, 8/10 LUQ abdominal pain. Waxing and waning. Exacerbated by bending over. Accompanied by nausea with one episode of vomiting this morning. She had an upper and lower endoscopy 2 weeks ago, and laparoscopic cholecystectomy in June of this year. Vitals reviewed. Physical exam reveals a well-appearing white female in no acute distress. There is tenderness to palpation of the right upper quadrant but the physical exam is otherwise unremarkable. IV established. Patient was administered 1 L NS, 4 mg Zofran, 4 mg morphine IV. ED urine test negative. No concerning abnormalities of the CBC, CMP, coags or UA. No acute findings on CT. I discussed the results this workup with the patient. I provided her with a copy of her laboratory and radiological results. She is instructed to return to normal, gentle activities as tolerated, follow-up with the primary care and custom shop worker as discussed. She indicated understanding of instructions and is agreeable to the care plan. She is stable and discharged home. Diagnosis Primary Impression: Intermittent right lower quadrant abdominal pain Referrals: Primary Care Physician Patient Instructions: Abdominal Pain (ED), General Instructions Additional Instructions: Rest, hydrate. Return to normal, gentle activities as tolerated. Follow-up with your custom shop worker and primary care as discussed. Return to the ED for any urgent or emergent medical condition. Disposition: 01 DISCHARGE HOME Condition: Stable Nguyen Saldivar Jan 28, 2017 11:54
[2017-01-28] MEDS ORDERED: SODIUM CHLOR 0.9% 1000 ML INJ 1,000 ML IV SCH (12:02)
[2017-01-28] MEDS ORDERED: SODIUM CHLORIDE 0.9% FLUSH 10 ML FLUSH IV FLUSH PRN (12:15)
[2017-01-28] MEDS ORDERED: MORPHINE SULFATE 4 MG/ML INJ IV PUSH ONE (12:15)
[2017-01-28] MEDS ORDERED: ONDANSETRON HCL 4 MG/2 ML VIAL IVP ONE (12:15)
[2017-01-28 12:48] LABS: AUTOMATED NEUTROPHIL # 5.7 TH/MM3 (1.8-7.7); BASOPHIL % 0.5 % (0.0-2.0); EOSINOPHIL # 0.1 TH/MM3 (0-0.4); EOSINOPHIL % 0.8 % (0.0-4.0); HEMATOCRIT 37.6 % (35.0-46.0); HEMO FLAGS DIFF FINAL; LYMPH % 12.2 % (9.0-44.0); LYMPHOCYTE # 0.8 TH/MM3 (1.0-4.8); MEAN CELL VOLUME 76.1 FL (80.0-100.0); MEAN CORPUSCULAR HEMOGLOBIN 25.3 PG (27.0-34.0); MEAN CORPUSCULAR HGB CONC 33.2 % (32.0-36.0); MONO % 4.8 % (0.0-8.0); NEUT % 81.7 % (16.0-70.0); PLATELET COUNT 174 TH/MM3 (150-450); RED BLOOD COUNT 4.94 MIL/MM3 (4.00-5.30); RED CELL DISTRIBUTION WIDTH 15.4 % (11.6-17.2); WHITE BLOOD COUNT 6.9 TH/MM3 (4.0-11.0)
[2017-01-28 12:56] LABS: APTT (PATIENT) 26.3 SEC (24.3-30.1); INTERNATIONAL NORMALIZED RATIO 0.9 RATIO; PROTHROMBIN TIME - PATIENT 9.8 SEC (9.8-11.6)
[2017-01-28 13:03] LABS: ALT (GPT) 17 U/L (10-53); ANION GAP 10 MEQ/L (5-15); AST (GOT) 15 U/L (15-37); BICARBONATE 25.3 MEQ/L (21.0-32.0); BLOOD UREA NITROGEN 15 MG/DL (7-18); CHLORIDE 104 MEQ/L (98-107); GLOMERULAR FILTRATION RATE 91 ML/MIN (>89); SODIUM (NA) 139 MEQ/L (136-145)
[2017-01-28 13:06] LABS: ALKALINE PHOSPHATASE 89 U/L (45-117); TOTAL BILIRUBIN ADULT 0.2 MG/DL (0.2-1.0)
[2017-01-28 15:11] LABS: BLOOD, URINE NEG (NEG); COMMENT (UR) CULT NOT INDICATED; CULTURE IF INDICATED CULT NOT INDICATED; GLUCOSE,URINE NEG (NEG); KETONE, URINE NEG (NEG); NITRITE,URINE NEG (NEG); PH, URINE 7.5 (5.0-8.5); SQUAMOUS EPITHELIAL CELL URINE <1 /hpf (0-5); URINE COLOR LIGHT-YELLOW (YELLW/STRAW)
[2017-01-28] MEDS ORDERED: IOHEXOL 350 MG/ML 10 ML VIAL (for RAD DIAG) IV ONE (16:25)
[2017-01-28 16:38] VITALS: BP 147/64; PULSE 72; RESP 20; O2SAT 100
--- NOTE | 2017-01-28 17:21 | RADRPT ---
EXAM DATE/TIME: 01/28/2017 16:18 [facility] COMPARISON: No previous studies available for comparison. INDICATIONS : Right upper abdomen pain today. IV CONTRAST: 96 cc Omnipaque 350 (iohexol) IV ORAL CONTRAST: No oral contrast ingested. RADIATION DOSE: 9.96 CTDIvol (mGy) MEDICAL HISTORY : Gastroesophageal reflux disease. Hypertension. Uterine fibroids SURGICAL HISTORY : Cholecystectomy. ENCOUNTER: Initial ACUITY: 1 day PAIN SCALE: 5/10 LOCATION: Right upper quadrant abdomen TECHNIQUE: Volumetric scanning of the abdomen and pelvis was performed. Using automated exposure control and ad justment of the mA and/or kV according to patient size, radiation dose was kept as low as reasonably achievable to obtain optimal diagnostic quality images. DICOM format image data is available electro nically for review and comparison. FINDINGS: LOWER LUNGS: The visualized lower lungs are clear. LIVER: Homogeneous density without lesion. There is no dilation of the biliary tree. Post cholecystectomy c lips are noted. Common bile that is mildly distended measuring 9 mm. SPLEEN: Normal size without lesion. PANCREAS: Within normal limits. KIDNEYS: Normal in size and shape. There is no mass, stone or hydronephrosis. ADRENAL GLANDS: Within normal limits. VASCULAR: There is no aortic aneurysm. BOWEL/MESENTERY: The stomach, small bowel, and colon demonstrate no acute abnormality. There is no free intraperitone al air or fluid. ABDOMINAL WALL: Within normal limits. RETROPERITONEUM: There is no lymphadenopathy. BLADDER: No wall thickening or mass. REPRODUCTIVE: Left adnexal cyst measuring 2.6 cm is noted. Pelvic structures are otherwise unremarkable. INGUINAL: There is no lymphadenopathy or hernia. MUSCULOSKELETAL: Within normal limits for patient age. CONCLUSION: 1. Status post cholecystectomy with expected mild dilatation the common bile duct. 2. 2.6 cm left adnexal cyst. 3. No acute abnormality noted. Baltazar Mahajan MD on January 28, 2017 at 17:15 Board Certified Radiologist. This report was verified electronically.
== END 2017-01-28 17:58 | disposition home or self-care (01) ==
LOC: NEPD 11:00
DX: R10.31 Right lower quadrant pain (principal); K76.6 Portal hypertension; R11.2 Nausea with vomiting, unspecified; R10.12 Left upper quadrant pain; K21.9 Gastro-esophageal reflux disease without esophagitis; D25.9 Leiomyoma of uterus, unspecified
CPT/HCPCS: 74177; 80053; 81001; 83605; 83690; 84703; 85025; 85610; 85730; 96374; 96375; 99285; J2270; J2405; J7030; Q9967

== ENCOUNTER 2017-08-18 09:38 | Emergency (ER) | payer BC ==
[~2017-08-18] VITALS: Ht 167.6 cm; Wt 89.5 kg
[~2017-08-18 09:38] MED LIST changes: +HYDR-3366 PO; -NORE1CAP PO; -NORE1TAB60 PO
[2017-08-18 09:42] VITALS: BP 159/70; PULSE 73; RESP 14; TEMP 98.2; O2SAT 99
[2017-08-18] MEDS ORDERED: SODIUM CHLORIDE 0.9% FLUSH 10 ML FLUSH IV FLUSH PRN (10:15)
[2017-08-18] MEDS ORDERED: KETOROLAC TROMETHAMINE 30 MG/ML (IVP) VIAL IV PUSH ONE (10:45)
[2017-08-18] MEDS ORDERED: ONDANSETRON HCL 4 MG/2 ML VIAL IV PUSH ONE (10:45)
[2017-08-18 10:48] VITALS: RESP 16; O2SAT 97
--- NOTE | 2017-08-18 10:56 | PD ---
HPI Chief Complaint: Flank/Kidney Pain Time Seen by Provider: 10:31 Travel History International Travel<30 days: No Contact w/Intl Traveler<30days: No Traveled to known affect area: No History of Present Illness HPI Patient 37-year-old female presents emergency department right upper quadrant and epigastric pain radiating the back for the past few days, endorses mild nausea but denies any vomiting dysuria vaginal bleeding vaginal discharge chest pain shortness of breath. Patient states that this is been going on for the past 4 days, gradually worsening. Patient states the pain is moderate, she states that she had her gallbladder removed before but feels similar, PFSH Past Medical History Diminished Hearing: No Gastrointestinal Disorders: Yes (gallstones) GERD: Yes Genitourinary: Yes (UTERINE FIBROIDS) Hypertension: Yes Reproductive: Yes (HX OF FIBROIDS) Immunizations Current: No ?: Not LMP: AUG 01, 2017 Menopausal: No : 1 Para: 1 Miscarriage: 0 : 0 Past Surgical History Abdominal Surgery: Yes (gallbladder removal ) Cholecystectomy: Yes (07-03-16 ) Social History Alcohol Use: No Tobacco Use: No Substance Use: No Allergies-Medications (Allergen,Severity, Reaction): Coded Allergies: No Known Allergies (Unverified , 01/28/17) Reported Meds & Prescriptions Reported Meds & Active Scripts Active Reported [place] (Hydrocodone-Acetaminophen) 10-325 Mg Tab 1 Tab PO Q6H PRN Lisinopril 20 Mg Tab 20 Mg PO DAILY Review of Systems Except as stated in HPI: all other systems reviewed are Neg Physical Exam Narrative GENERAL: Well-developed comfortable appearing female in no obvious distress SKIN: Focused skin assessment warm/dry. HEAD: Atraumatic. Normocephalic. EYES: Pupils equal and round. No scleral icterus. No injection or drainage. ENT: No nasal bleeding or discharge. Mucous membranes pink and moist. NECK: Trachea midline. No JVD. CARDIOVASCULAR: Regular rate and rhythm. No murmur appreciated. RESPIRATORY: No accessory muscle use. Clear to auscultation. Breath sounds equal bilaterally. GASTROINTESTINAL: Abdomen soft, non-tender, nondistended. Hepatic and splenic margins not palpable. No rebound no percussive tenderness, Calzada sign negative , abdomen wholly benign MUSCULOSKELETAL: No obvious deformities. No clubbing. No cyanosis. No edema. NEUROLOGICAL: Awake and alert. No obvious cranial nerve deficits. Motor grossly within normal limits. Normal speech. PSYCHIATRIC: Appropriate mood and affect; insight and judgment normal. Data Data Last Documented VS Vital Signs Date Time Temp Pulse Resp B/P (MAP) Pulse Ox O2 Delivery O2 Flow Rate FiO2 08/18/17 13:15 08/18/17 10:48 16 97 Room Air 08/18/17 09:42 98.2 73 Orders Orders Urinalysis - C+S If Indicated (08/18/17 10:09) Ed Urine Pregnancytest Poc (08/18/17 10:09) Complete Blood Count With Diff (08/18/17 10:15) Comprehensive Metabolic Panel (08/18/17 10:15) Lipase (08/18/17 10:15) Prothrombin Time / Inr (Pt) (08/18/17 10:15) Act Partial Throm Time (Ptt) (08/18/17 10:15) Iv Access Insert/Monitor (08/18/17 10:15) Ecg Monitoring (08/18/17 10:15) Oximetry (08/18/17 10:15) Sodium Chloride 0.9% Flush (Ns Flush) (08/18/17 10:15) Ketorolac Inj (Toradol Inj) (08/18/17 10:45) Ondansetron Inj (Zofran Inj) (08/18/17 10:45) Ed Discharge Order (08/18/17 13:01) Labs Laboratory Tests Test 08/18/17 10:10 08/18/17 10:35 Urine Color LIGHT-YELLOW Urine Turbidity CLEAR Urine pH 7.5 Urine Specific [place] 1.009 Urine Protein NEG mg/dL Urine Glucose (UA) NEG mg/dL Urine Ketones NEG mg/dL Urine Occult Blood NEG Urine Nitrite NEG Urine Bilirubin NEG Urine Urobilinogen LESS THAN 2.0 MG/DL Urine Leukocyte Esterase NEG Urine RBC LESS THAN 1 /hpf Urine WBC LESS THAN 1 /hpf Urine Squamous Epithelial Cells 1 /hpf Urine Bacteria OCC /hpf Microscopic Urinalysis Comment CULT NOT INDICATED White Blood Count 4.2 TH/MM3 Red Blood Count 4.68 MIL/MM3 Hemoglobin 11.6 GM/DL Hematocrit 35.8 % Mean Corpuscular Volume 76.4 FL Mean Corpuscular Hemoglobin 24.9 PG Mean Corpuscular Hemoglobin Concent 32.5 % Red Cell Distribution Width 16.0 % Platelet Count 167 TH/MM3 Mean Platelet Volume 10.1 FL Neutrophils (%) (Auto) 73.1 % Lymphocytes (%) (Auto) 17.5 % Monocytes (%) (Auto) 7.3 % Eosinophils (%) (Auto) 1.3 % Basophils (%) (Auto) 0.8 % Neutrophils # (Auto) 3.1 TH/MM3 Lymphocytes # (Auto) 0.7 TH/MM3 Monocytes # (Auto) 0.3 TH/MM3 Eosinophils # (Auto) 0.1 TH/MM3 Basophils # (Auto) 0.0 TH/MM3 CBC Comment DIFF FINAL Differential Comment Prothrombin Time 9.6 SEC Prothromb Time International Ratio 0.9 RATIO Activated Partial Thromboplast Time 25.0 SEC Blood Urea Nitrogen 11 MG/DL Creatinine 0.70 MG/DL Random Glucose 96 MG/DL Total Protein 7.7 GM/DL Albumin 3.8 GM/DL Calcium Level 8.9 MG/DL Alkaline Phosphatase 92 U/L Aspartate Amino Transf (AST/SGOT) 22 U/L Alanine Aminotransferase (ALT/SGPT) 14 U/L Total Bilirubin 0.2 MG/DL Sodium Level 137 MEQ/L Potassium Level 4.4 MEQ/L Chloride Level 107 MEQ/L Carbon Dioxide Level 24.5 MEQ/L Anion Gap 6 MEQ/L Estimat Glomerular Filtration Rate 95 ML/MIN Lipase 267 U/L MDM Medical Decision Making Medical Screen Exam Complete: Yes Emergency Medical Condition: Yes Differential Diagnosis Pancreatitis, gastritis, gastroenteritis, acute abdomen highly unlikely. Narrative Course Patient room to the emergency department, abdomen is benign her blood work is reassuring, I do not see any indication for helical imaging or x-ray imaging of any type as the pre-test probability is very unlikely that the patient has an acute abdomen or surgical abnormality. Discussed need follow-up with a primary care physician and return to ED criteria. She is stable for discharge Diagnosis Primary Impression: Flank pain Referrals: [facility] Departure Forms: Work Release Enter return to work date: Aug 20, 2017 Med/Other Pt SpecificInfo: Prescription(s) given Disposition: 01 DISCHARGE HOME Condition: Stable Isac Randolph MD Aug 18, 2017 10:56
[2017-08-18 11:00] LABS: AUTOMATED NEUTROPHIL # 3.1 TH/MM3 (1.8-7.7); BASOPHIL % 0.8 % (0.0-2.0); EOSINOPHIL # 0.1 TH/MM3 (0-0.4); EOSINOPHIL % 1.3 % (0.0-4.0); HEMATOCRIT 35.8 % (35.0-46.0); HEMOGLOBIN 11.6 GM/DL (11.6-15.3); LYMPH % 17.5 % (9.0-44.0); LYMPHOCYTE # 0.7 TH/MM3 (1.0-4.8); MEAN CELL VOLUME 76.4 FL (80.0-100.0); MEAN CORPUSCULAR HEMOGLOBIN 24.9 PG (27.0-34.0); MEAN CORPUSCULAR HGB CONC 32.5 % (32.0-36.0); MEAN PLATELET VOLUME 10.1 FL (7.0-11.0); MONO % 7.3 % (0.0-8.0); MONOCYTE # 0.3 TH/MM3 (0-0.9); NEUT % 73.1 % (16.0-70.0); PLATELET COUNT 167 TH/MM3 (150-450); RED BLOOD COUNT 4.68 MIL/MM3 (4.00-5.30); WHITE BLOOD COUNT 4.2 TH/MM3 (4.0-11.0)
[2017-08-18 11:10] LABS: INTERNATIONAL NORMALIZED RATIO 0.9 RATIO; PROTHROMBIN TIME - PATIENT 9.6 SEC (9.8-11.6)
[2017-08-18 11:18] LABS: ALKALINE PHOSPHATASE 92 U/L (45-117); TOTAL BILIRUBIN ADULT 0.2 MG/DL (0.2-1.0); TOTAL PROTEIN 7.7 GM/DL (6.4-8.2)
[2017-08-18 11:31] LABS: ALBUMIN 3.8 GM/DL (3.4-5.0); ALT (GPT) 14 U/L (10-53); AST (GOT) 22 U/L (15-37); BICARBONATE 24.5 MEQ/L (21.0-32.0); BLOOD UREA NITROGEN 11 MG/DL (7-18); CALCIUM 8.9 MG/DL (8.5-10.1); CHLORIDE 107 MEQ/L (98-107); GLOMERULAR FILTRATION RATE 95 ML/MIN (>89); GLUCOSE,RANDOM 96 MG/DL (74-106); SODIUM (NA) 137 MEQ/L (136-145)
[2017-08-18 12:42] LABS: BACTERIA, URINE OCC /hpf; BILIRUBIN, URINE NEG (NEG); BLOOD, URINE NEG (NEG); GLUCOSE,URINE NEG (NEG); KETONE, URINE NEG (NEG); NITRITE,URINE NEG (NEG); PH, URINE 7.5 (5.0-8.5); SQUAMOUS EPITHELIAL CELL URINE 1 /hpf (0-5); URINE COLOR LIGHT-YELLOW (YELLW/STRAW); URINE LEUKOCYTE ESTERASE NEG (NEG)
== END 2017-08-18 13:18 | disposition home or self-care (01) ==
LOC: NEPC 09:38
DX: R10.11 Right upper quadrant pain (principal); R10.13 Epigastric pain; K21.9 Gastro-esophageal reflux disease without esophagitis; I10 Essential (primary) hypertension
CPT/HCPCS: 80053; 81001; 83690; 84703; 85025; 85610; 85730; 96374; 96375; 99284; J1885; J2405

== ENCOUNTER 2017-08-23 16:52 | Emergency (ER) | payer BC ==
[~2017-08-23] VITALS: Ht 167.6 cm; Wt 91.0 kg
[~2017-08-23 16:52] MED LIST changes: -PROT40TA PO; -ZOFR4TAB3 SL
[2017-08-23 16:56] VITALS: BP 154/75; PULSE 91; RESP 16; TEMP 98.1; O2SAT 99
[2017-08-23 17:22] LABS: BILIRUBIN, URINE NEG (NEG); BLOOD, URINE NEG (NEG); GLUCOSE,URINE NEG (NEG); KETONE, URINE NEG (NEG); NITRITE,URINE NEG (NEG); URINE COLOR YELLOW (YELLW/STRAW); URINE LEUKOCYTE ESTERASE NEG (NEG)
[2017-08-23 17:43] LABS: BACTERIA, URINE MOD /hpf; MUCUS URINE MANY /lpf (OCC); SQUAMOUS EPITHELIAL CELL URINE 0-5 /hpf (0-5); WBC, URINE 0-2 /hpf (0-5)
--- NOTE | 2017-08-23 18:04 | PD ---
HPI Chief Complaint: Flank/Kidney Pain Time Seen by Provider: 17:32 Travel History International Travel<30 days: No Contact w/Intl Traveler<30days: No Traveled to known affect area: No History of Present Illness HPI Patient is a 37-year-old female seen by me a few days ago for right upper quadrant abdominal pain. Patient represents today stating that she has been having some burning on urination as well as some right flank pain over her right kidney and is concerned that she might have a kidney infection. The other day send urine specimen blood work on her all of which was reassuring and there was no indication for CAT scan of her abdomen. The patient states it colmenares only when urinating and she took a home strip this that it was leukocyte positive. She has not followed up with her primary care physician or MANAGEMENT LIAISON yet. States symptoms are moderate, intermittent, not associated with any nausea vomiting diarrhea, no history of trauma. PFSH Past Medical History Diminished Hearing: No Gastrointestinal Disorders: Yes (gallstones) GERD: Yes Genitourinary: Yes (UTERINE FIBROIDS) Hypertension: Yes Reproductive: Yes (HX OF FIBROIDS) Immunizations Current: No Tetanus Vaccination: Unknown ?: Not LMP: 08/01/17 Menopausal: No : 1 Para: 1 Miscarriage: 0 : 0 Past Surgical History Abdominal Surgery: Yes (gallbladder removal ) Cholecystectomy: Yes (07-03- ) Social History Alcohol Use: No Tobacco Use: No Substance Use: No Allergies-Medications (Allergen,Severity, Reaction): Coded Allergies: No Known Allergies (Unverified Adverse Reaction, Unknown, 08/23/17) Reported Meds & Prescriptions Reported Meds & Active Scripts Active Keflex (Cephalexin) 500 Mg Cap 500 Mg PO Q6H 5 Days Reported [place] (Hydrocodone-Acetaminophen) 10-325 Mg Tab 1 Tab PO Q6H PRN Lisinopril 20 Mg Tab 20 Mg PO DAILY Review of Systems Except as stated in HPI: all other systems reviewed are Neg Physical Exam Narrative GENERAL: Well-developed well-nourished, anxious in no obvious distress SKIN: Focused skin assessment warm/dry. HEAD: Atraumatic. Normocephalic. EYES: Pupils equal and round. No scleral icterus. No injection or drainage. ENT: No nasal bleeding or discharge. Mucous membranes pink and moist. NECK: Trachea midline. No JVD. CARDIOVASCULAR: Regular rate and rhythm. No murmur appreciated. RESPIRATORY: No accessory muscle use. Clear to auscultation. Breath sounds equal bilaterally. GASTROINTESTINAL: Abdomen soft, non-tender, nondistended. Hepatic and splenic margins not palpable. No CVA tenderness no rebound no percussive tenderness, Calzada sign negative. MUSCULOSKELETAL: No obvious deformities. No clubbing. No cyanosis. No edema. NEUROLOGICAL: Awake and alert. No obvious cranial nerve deficits. Motor grossly within normal limits. Normal speech. PSYCHIATRIC: Appropriate mood and affect; insight and judgment normal. Data Data Last Documented VS Vital Signs Date Time Temp Pulse Resp B/P (MAP) Pulse Ox O2 Delivery O2 Flow Rate FiO2 08/23/17 20:38 67 16 123/77 (92) 98 08/23/17 19:33 Room Air 08/23/17 16:56 98.1 Orders Orders Urinalysis - C+S If Indicated (08/23/17 16:58) Ed Urine Pregnancytest Poc (08/23/17 16:58) Urine Culture (08/23/17 17:00) Ct Abd/Pel W/O Iv Contrast (08/23/17 ) Ed Discharge Order (08/23/17 19:54) Cephalexin (Keflex) (08/23/17 20:00) Labs Laboratory Tests Test 08/23/17 17:00 Urine Color YELLOW Urine Turbidity CLEAR Urine pH 6.0 Urine Specific [place] 1.010 Urine Protein NEG mg/dL Urine Glucose (UA) NEG mg/dL Urine Ketones NEG mg/dL Urine Occult Blood NEG Urine Nitrite NEG Urine Bilirubin NEG Urine Urobilinogen 0.2 MG/DL Urine Leukocyte Esterase NEG Urine WBC 0-2 /hpf Urine Squamous Epithelial Cells 0-5 /hpf Urine Bacteria MOD /hpf Urine Mucus MANY /lpf Microscopic Urinalysis Comment CULTURE INDICATED MDM Medical Decision Making Medical Screen Exam Complete: Yes Emergency Medical Condition: Yes Differential Diagnosis Acute abdomen highly likely, UTI, pyelonephritis, kidney stone, BV, CV, STD. Narrative Course Patient room to the emergency department, reviewed blood work from the other day which was negative, the patient does have trace bacteriuria but is nitrate and leukocyte esterase negative. Giving her burning sensation when she urinates think this is enough to treat her for urinary tract infection. I am not wholly convinced that this is what is causing her symptoms, given her flank pain and to avoid anchoring by us a CT is indicated: CT read shows #1 2 tiny calcified nonobstructing right renal calculi, #2 splenomegaly, #3 tiny midline ventral abdominal wall hernia containing only fat , #4 minimally prominent cystic right ovary measuring 3.8 x 2.1 cm, #5 minimal free fluid within the left adnexal region, #6 mild scoliosis and degenerative changes of lumbar spine. Results were discussed with the patient, had recommended that she have a pelvic exam while here and she declined stating she would rather be empirically treated for the bacteriuria and possible urinary tract infection and follow-up with her MANAGEMENT LIAISON. I think this is reasonable but I am not convinced that the urine is the causative entity of her abdominal pain this was explained to her and the need for follow-up. She does appear comfortable declined pain medicine in the emergency department Diagnosis Primary Impression: UTI (urinary tract infection) Med/Other Pt SpecificInfo: Prescription(s) given Scripts Cephalexin (Keflex) 500 Mg Cap 500 MG PO Q6H for Infection for 5 Days, #20 CAP 0 Refills Prov: Isac Randolph MD 08/23/17 Disposition: 01 DISCHARGE HOME Condition: Stable Isac Randolph MD Aug 23, 2017 18:04
--- NOTE | 2017-08-23 19:23 | RADRPT ---
EXAM DATE/TIME: 08/23/2017 18:56 [facility] COMPARISON: No previous studies available for comparison. INDICATIONS : Right flank pain and nausea. ORAL CONTRAST: No oral contrast ingested. RADIATION DOSE: 20.69 CTDIvol (mGy) ; Patient body habitus MEDICAL HISTORY : Gastroesophageal reflux disease. Hypertension. Uterine fibroids, Gallstones, Anemia SURGICAL HISTORY : Cholecystectomy. ENCOUNTER: Initial ACUITY: 1 day PAIN SCALE: 5/10 LOCATION: Right Abdomen TECHNIQUE: Volumetric scanning of the abdomen and pelvis was performed. Using automated exposure control and ad justment of the mA and/or kV according to patient size, radiation dose was kept as low as reasonably achievable to obtain optimal diagnostic quality images. DICOM format image data is available electro nically for review and comparison. FINDINGS: LOWER LUNGS: The visualized lower lungs are clear. LIVER: Homogeneous density without lesion. There is no dilation of the biliary tree. No calcified gallston es. Status post cholecystectomy. SPLEEN: Splenomegaly is noted PANCREAS: Within normal limits. KIDNEYS: Normal in size and shape. There is no mass or hydronephrosis. 2 tiny calcified nonobstructing right renal calculi are noted with the larger measuring 2 mm. ADRENAL GLANDS: Within normal limits. VASCULAR: There is no aortic aneurysm. BOWEL/MESENTERY: The stomach, small bowel, and colon demonstrate no acute abnormality. There is no free intraperitone al air or fluid. The appendix is normal. ABDOMINAL WALL: Tiny midline ventral abdominal wall hernia containing only fat. RETROPERITONEUM: There is no lymphadenopathy. BLADDER: No wall thickening or mass. REPRODUCTIVE: Within normal limits. Minimal free fluid is noted within the left adnexal region. The right ovary is cystic and minimally prominent and measures 3.8 x 2.1 cm. INGUINAL: There is no lymphadenopathy or hernia. MUSCULOSKELETAL: Mild scoliosis and degenerative changes of the lumbar spine are noted. CONCLUSION: 1. 2 tiny calcified nonobstructing right renal calculi. 2. Splenomegaly. 3. Tiny midline ventral abdominal wall hernia containing only fat. 4. Minimally prominent cystic right ovary measuring 3.8 x 2.1 cm. 5. Minimal free fluid within the left adnexal region. 6. Mild scoliosis and degenerative changes of the lumbar spine. Isac Martins MD on August 23, 2017 at 19:16 Board Certified Radiologist. This report was verified electronically.
[2017-08-23 19:33] VITALS: BP 128/67; PULSE 71; RESP 16; O2SAT 100
[2017-08-23] MEDS ORDERED: CEPH-460 PO (19:54)
[2017-08-23] MEDS ORDERED: CEPHALEXIN MONOHYDRATE 500 MG CAP PO ONE (20:00)
[2017-08-23 20:38] VITALS: BP 123/77
== END 2017-08-23 20:49 | disposition home or self-care (01) ==
LOC: PHED 16:52
DX: N39.0 Urinary tract infection, site not specified (principal); N20.0 Calculus of kidney; R16.1 Splenomegaly, not elsewhere classified; I10 Essential (primary) hypertension
CPT/HCPCS: 74176; 81001; 84703; 87086; 99284